=== PATIENT | male | born 1950 | race African-American/Black ===

== ENCOUNTER 2017-07-23 10:25 | Emergency (ER) | payer MEDICARE, MEDICAID ==
[~2017-07-23] VITALS: Ht 188 cm; Wt 76.1 kg
[2017-07-23 10:28] VITALS: BP 144/94
[2017-07-23] MEDS ORDERED: LIDOCAINE 1%, 20ML INFIL ONE (11:00)
[2017-07-23] MEDS ORDERED: LIDOCAINE 1%, 10ML ONE (11:03)
== END 2017-07-23 11:45 | disposition home or self-care (01) ==
LOC: ED 11:07
DX: S60.032A Contusion of left middle finger without damage to nail, initial encounter (principal); I10 Essential (primary) hypertension; F20.9 Schizophrenia, unspecified; X58.XXXA Exposure to other specified factors, initial encounter; Y93.89 Activity, other specified; Y99.8 Other external cause status; Y92.59 Other trade areas as the place of occurrence of the external cause
CPT/HCPCS: 11740; 99284